=== PATIENT | male | born 1990 | race Caucasian/White ===

== ENCOUNTER 2017-02-06 08:20 | Emergency (ER) | payer BC ==
[2017-02-06 08:25] VITALS: BP 156/97; TEMP 98.6; O2SAT 99
--- NOTE | 2017-02-06 08:38 | EDPHY ---
H & P Stated Complaint: l upper tooth pain Time Seen by Provider: 02/06/17 08:38 - Personal History Current Tetanus/Diphtheria Vaccine: Yes - Medical/Surgical History Hx Asthma: No Hx Chronic Respiratory Disease: No Hx Diabetes: No Hx Cardiac Disease: No Hx Renal Disease: No Hx Cirrhosis: No Hx Alcoholism: No Hx HIV/AIDS: No Hx Splenectomy or Spleen Trauma: No Other PMH: denies - Social History Smoking Status: Never smoked Constitutional: Initial Vital Signs Temperature (C) 37 C 02/06/17 08:23 Heart Rate 67 02/06/17 08:23 Respiratory Rate 20 02/06/17 08:23 Blood Pressure 156/97 H 02/06/17 08:23 O2 Sat (%) 99 02/06/17 08:23 O2 Delivery Mode Room Air Allergies/Adverse Reactions: No Known Allergies Allergy (Unverified 02/06/17 08:23) Home Medications: Medication Instructions Recorded Cephalexin [Keflex (RX)] 500 mg PO TID #30 cap 02/06/17 Ibuprofen [Motrin] 800 mg PO Q8 #20 tab 02/06/17 oxyCODONE IR [Oxycodone Ir (*)] 5 - 10 mg PO Q6 PRN #20 tab 02/06/17 Medical Decision Making ED Course/Re-evaluation: CHIEF COMPLAINT: Dental pain HISTORY OF PRESENT ILLNESS: 27-year-old healthy male who moved here recently from [place] and has not established with a dentist. He states he called about [address] but cannot get in. About 48 hours ago he started with some left upper molar pain along the back 2 molars. He has had extensive dental work and states that the pain has become excruciating over the last 10-15 hours although he started to feel a couple days ago. Denies any fevers or chills. Denies any sinus congestion. Denies any recent trauma. Denies any recent dental work. REVIEW OF SYSTEMS: A 10 point review of systems was performed and is negative with the exception of the elements mentioned in the history of present illness. PHYSICAL EXAM: HR, BP, O2 Sat, RR. Temp noted General Appearance: Alert, well hydrated, appropriate, and non-toxic appearing. Head: Atraumatic without scalp tenderness or obvious injury Eyes: Pupils equal, round, reactive to light and accommodation, EOMI, no trauma , no injection. Ears: Clear bilaterally, no perforation, normal landmarks Nose: Atraumatic, no rhinorrhea, clear. Throat: Some gingival inflammation along the upper outer be you cool and gingival mucosa along the back 2 molars on the left. No evidence of broken tooth or obvious abscess. There is no erythema or exudates, no lesions, normal tonsils, mucus membranes moist. Neck: Supple, 2+ carotid upstroke, nontender, no lymphadenopathy. Respiratory: No retractions, no distress, no wheezes, and no accessory muscle use. Lungs are clear to auscultation bilaterally. Cardiovascular: Regular rate and rhythm, no murmurs, rubs, or gallops. Bilateral carotid, radial, dorsalis pedis, and posterior tibial pulses intact. Good capillary refill all extremities. Gastrointestinal: Abdomen is soft, nontender, non-distended, no masses, no rebound, no guarding, no peritoneal signs. Musculoskeletal: Normal active ROM of all extremities, atraumatic. Neurological: Alert, appropriate, and interactive. The patient has normal DTRs and non-focal cranial nerves, motor, sensory, and cerebellar exam. Skin: No rashes, good turgor, no nodules on palpation. Past medical history: Prior dental issues Past surgical history: Prior dental procedures Family history: Noncontributory Social history: Single, moved here a month ago for [place], does not abuse tobacco drugs or alcohol, employed DIFFERENTIAL DIAGNOSIS: Includes but is not limited to: Gingivitis, dental caries, broken tooth, avulse tooth, apical abscess MEDICAL DECISION MAKING: This patient most likely has a dental infection causing his pain. I have started him on Keflex and I am giving him 800 mg ibuprofen to take 3 times a day in addition to some Oxy IR. We will also given the phone number for dental a dental emergency. He will return here if he has any problems. Departure - Departure Disposition: Home, Routine, Self-Care Clinical Impression: Dental implant pain Qualifiers: Encounter type: initial encounter Qualified Code(s): T85.848A - Pain due to other internal prosthetic devices, implants and grafts, initial encounter Condition: Good Instructions: Toothache (ED) Additional Instructions: [phone] is the phone number for dental late emergencies. Please call this number and they will assist you in getting seen since you do not have an established dentist locally. Return if worse Referrals: NONE *PRIMARY CARE P,. [Primary Care Provider] - As per Instructions Prescriptions: Cephalexin [Keflex (RX)] 500 mg PO TID #30 cap Ibuprofen [Motrin] 800 mg PO Q8 #20 tab oxyCODONE IR [Oxycodone Ir (*)] 5 - 10 mg PO Q6 PRN #20 tab PRN Reason: Pain, Severe
[2017-02-06] MEDS ORDERED: IBUPROFEN 800 MG TAB PO ONE (08:42)
[2017-02-06] MEDS ORDERED: CEPHALEXIN 500 MG CAP PO ONE (08:42)
[2017-02-06] MEDS ORDERED: OXYCODONE/APAP 5/325 TAB PO ONE (08:42)
[2017-02-06 09:07] VITALS: PULSE 87; RESP 18
== END 2017-02-06 09:08 | disposition home or self-care (01) ==
DX: T85.848A Pain due to other internal prosthetic devices, implants and grafts, initial encounter (principal); Y73.2 Prosthetic and other implants, materials and accessory gastroenterology and urology devices associated with adverse incidents

== ENCOUNTER → 2017-08-20 | Outpatient (CLI) | payer BC, OTHER | LOC: BMCIMAGING 08:32 | PROVIDERS: ATTEND Internal Medicine | DX: K82.4 Cholesterolosis of gallbladder (principal) ==

== ENCOUNTER → 2018-02-20 | Outpatient (CLI) | payer BC | LOC: FCPNEURO 21:30 | PROVIDERS: ATTEND Student in an Organized Health Care Education/Training Program | DX: G47.33 Obstructive sleep apnea (adult) (pediatric) (principal) ==